=== PATIENT | male | born 1950 | race Two or more races ===

== ENCOUNTER 2020-04-23 14:06 | Emergency (ER) | payer OTHER ==
[~2020-04-23] VITALS: Ht 175.3 cm; Wt 102.5 kg
[2020-04-23] MEDS ORDERED: COZAAR50 MG (14:31)
[2020-04-23] MEDS ORDERED: LIPITOR40 M1 (14:31)
== END 2020-04-23 19:28 | disposition home or self-care (01) ==
LOC: ER 14:06
DX: S63.591A Other specified sprain of right wrist, initial encounter (principal); S70.01XA Contusion of right hip, initial encounter; S40.011A Contusion of right shoulder, initial encounter; S30.0XXA Contusion of lower back and pelvis, initial encounter; W11.XXXA Fall on and from ladder, initial encounter; Y93.89 Activity, other specified; Y92.018 Other place in single-family (private) house as the place of occurrence of the external cause; Y99.8 Other external cause status